=== PATIENT | male | born 1935 | race Caucasian/White ===

== ENCOUNTER 2018-05-18 21:15 | Inpatient (IN) ==
[2018-05-19] MEDS ORDERED: Naloxone 0.4 MG/ML INJ IVP PRN (01:51)
[2018-05-19] MEDS ORDERED: Dextrose Gel 15 GM/37.5 ML TUBE PO PRN ×2 (02:08)
[2018-05-19] MEDS ORDERED: D5% in Water 1,000 ML IVC PRN (02:08)
[2018-05-19] MEDS ORDERED: *HR* Dextrose 50 % in Water (Syg) 50 ML SYRINGE IVP PRN (02:08)
[2018-05-19] MEDS ORDERED: 0.9 % Sodium Chloride 1,000 ML IVC ONE (02:12)
--- NOTE | 2018-05-19 02:22 | Internal Med History&Physical ---
Date of Encounter: 05/19/18 Time of Encounter: 01:00 Internal Medicine - H&P: HPI Chief complaint: Obstructing ureteral stone Admitted From: Hospital to Hospital Transfer Plans for Post Hospital Care: Home History of present illness: Mr. Sellers is a 82 year old male Patient sedated, history obtained from ER records: Patient presented to the [place] ER for altered mental status and possible stroke. EMS stated he had a blod pressure of 200/110, heart rate of 120, temperature of 100. In the ER he was found to have a temperature of 100.8, pulse of 106 and blood pressure of 180 /84. ER did sepsis workup including CT abdomen, pelvis and head, UA, chest x- ray and lab work. CT abdomen showed 8mm stone in the right ureter with moderate hydronephrosis. Blood and urine cultures were obtained, he was given rocephin and levaquin. Arrangements were made to have patient transferred to [facility] for further management. Upon my assessment, patient is sedated but does respond to his name. He denies pain, but unclear if he has capacity to give accurate answer. Current vitals are temperature of 98.4, pulse 90, blood pressure of 142/78. He is resting comfortably in the hospital bed. Past Med Surg Social Fam HX - Past Medical History Medical history: COPD, dementia, diabetes, GERD, hypertension, kidney stones Additional medical history: DEMENTIA Psychiatric history: anxiety - Past Surgical History Surgical History: cholecystectomy, other Additional surgical history: dementia - Social History Smoking Status: Never smoker Smokeless Tobacco Status: No Alcohol use: none Drug use: none - Family History Mother Living Status: Hx Family Neurologic Disorders: Yes (History of a stroke) Father Living Status: Internal Medicine - H&P: Meds Pravastatin Sodium [Pravachol] 20 mg PO DAILY 05/25/15 [History] Memantine [Namenda] 5 mg PO DAILY 08/29/17 [History] Citalopram Hydrobromide [Citalopram HBr] 5 mg PO DAILY #0 09/02/17 [Rx] Potassium Chloride 20 meq PO DAILY tab.er.prt 09/02/17 [Rx] Melatonin/Pyridoxine HCl (B6) [Melatonin 3 mg Tablet] 6 mg PO HS 09/08/17 [ History] traZODone [TraZODone] 25 mg PO HS 09/08/17 [History] Aspirin Enteric Coated [Aspirin EC] 81 mg PO DAILY 05/18/18 [History] Cranberry Fruit Concentrate [Cranberry] 900 mg PO BID 05/18/18 [History] GlipiZIDE [Glipizide Xl] 5 mg PO 05/18/18 [History] Loratadine [Allergy Relief] 10 mg PO 05/18/18 [History] Melatonin [Melatin] 3 mg PO 05/18/18 [History] Mirtazapine [Remeron] 15 mg PO HS 05/18/18 [History] metFORMIN [Glucophage] 1,000 mg PO BID 05/18/18 [History] 3 Allergy/AdvReac Type Severity Reaction Status Date / Time No Known Allergies Allergy Verified 09/08/17 22:21 All Systems PM: A 10-system review of systems was performed and is negative for pertinent findings except as documented above in the HPI. - Constitutional Vitals: Temp Pulse Resp BP Pulse Ox 98.4 F 90 20 142/78 93 05/19/18 00:45 05/19/18 01:03 05/19/18 00:45 05/19/18 00:45 05/19/18 00:45 General appearance: Present: cooperative, pleasant, no acute distress Exam: sedated - Head Head exam: Present: normal inspection - Respiratory Respiratory exam: Present: CTAB. Absent: chest wall tenderness, respiratory distress, wheezes - Cardiovascular Cardiovascular exam: Present: RRR. Absent: diastolic murmur, systolic murmur - GI/Abdominal GI/Abdominal exam: Present: normal bowel sounds, soft. Absent: tenderness Additional comments: Difficult to determine tenderness, palpation did not result in patient reaction. Abdomen distended, but unclear what baseline is. - Extremities Exam Extremities exam: Present: warm, radial pulses palpable and symmetrical. Absent : pedal edema, tenderness - Neurological Exam Additional comments: Sedated - Skin Additional comments: Redness of groin, otherwise within normal limits. Internal Med - H&P Results - Labs CBC & Chem 7: 05/19/18 05:06 05/19/18 05:06 - Assessment and plan (1) Right ureteral calculus Current Visit: Yes Status: Acute Assessment and plan: 8mm calculus obstructing the right ureter. Urology consult in the AM. IV fluid hydration. Monitor urine output. (2) Hydronephrosis Current Visit: Yes Status: Acute Assessment and plan: Secondary to obstructing stone Treatment as above Qualifiers: Qualified Code(s): N13.2 - Hydronephrosis with renal and ureteral calculous obstruction (3) UTI (urinary tract infection) Current Visit: No Status: Acute Assessment and plan: Nitrite positive, large leukocyte esterase, large blood with moderate bacteria on UA. Urine culture not obtained at [place]. Continue IV antibiotics. Qualifiers: Urinary tract infection type: site unspecified Hematuria presence: without hematuria Qualified Code(s): N39.0 - Urinary tract infection, site not specified (4) Elevated troponin Current Visit: Yes Status: Acute Assessment and plan: Denies chest pain, continue to monitor. (5) Sepsis Current Visit: No Status: Acute Assessment and plan: Now resolved, patient had elevated vital signs in the [place] ER, likely related to the UTI and ureteral stone. Lactic acid not elevated. Continue to monitor. Qualifiers: Sepsis type: sepsis due to unspecified organism Qualified Code(s): A41.9 - Sepsis, unspecified organism (6) Dementia Current Visit: No Status: Chronic Assessment and plan: Chronic, likely baseline, but UTI could contribute to mental status changes. Continue to monitor. Treat UTI as above. Qualifiers: Qualified Code(s): F03.90 - Unspecified dementia without behavioral disturbance (7) Diabetes Current Visit: No Status: Chronic Assessment and plan: Insulin sliding scale Q6H, with Q6H accuchecks. NPO currently in anticipation of procedure today to remove stone. Qualifiers: Diabetes mellitus type: type 2 Diabetes mellitus halfway insulin use: without manager clinical use Diabetes mellitus complication status: with kidney complications Diabetes mellitus complication detail: with nephropathy Qualified Code(s): E11.21 - Type 2 diabetes mellitus with diabetic nephropathy (8) Melissa rash of groin Current Visit: Yes Status: Acute Assessment and plan: Nystatin powder (9) DVT prophylaxis Current Visit: No Status: Acute Assessment and plan: SCDs - Time Spent With Patient Total time spent is greater than 50% in coordination of care (as documented) at patient's floor/unit and/or counseling patient: Greater than 35 minutes
[2018-05-19 05:24] LABS: Hemoglobin 10.9 g/dL (12.9-16.9); Mean Corpuscular HGB Conc 32.1 g/dL (31.6-35.5); Mean Corpuscular Hemoglobin 27.1 pg (28.0-33.3); Mean Corpuscular Volume 84.6 fL (83.0-100.0); Mean Platelet Volume 9.3 fL (9.4-12.4); Platelet Count 163 K/mcL (140-400); Red Blood Count 4.02 M/mcL (4.19-5.50); Red Cell Distribution Width 14.6 % (11.5-14.5)
[2018-05-19 05:43] LABS: Calcium 8.2 mg/dL (8.6-10.3); Potassium 3.5 mEq/L (3.5-5.1)
[2018-05-19] MEDS ORDERED: *HR* Heparin 5,000 UNIT/ML VIAL SQ SCH (06:00)
[2018-05-19] MEDS: Insulin LISPRO 300 UNITS/3 ML VIAL SQ SCH ×3 (06:00→17:58)
--- NOTE | 2018-05-19 08:05 | Urology - Consult Note ---
<Shanna Washington N - Last Filed: 05/19/18 08:01> Date of Encounter: 05/19/18 Time of Encounter: 07:50 - Assessment and Plan (1) Right ureteral calculus Current Visit: Yes Status: Acute Assessment and plan: Patient is an 82 year old male who presents with an 8mm mid-ureteral stone and right hydronephrosis. Vital signs are stable, and patient is afebrile. Patient' s son has been counseled on the risks and benefits of surgical extraction. Patient's son verbalized understanding, consent has been signed, and the patient is prepared to undergo a right ureteroscopic stone extraction with holmium laser, basket retrieval, and right ureteral stent placement. Patient's son is aware stone extraction may require more than one procedure. Urology CN:LISA Consult date: 05/19/18 Reason for consult Urology: Other (ureteral stone) History of present illness: Patient is an 82 year old male who presents with febrile illness and weakness. Patient is a resident at a intermediate care facility in [place]. Patient is currently non-verbal. Patient suffers from dementia and multiple co-morbidities per his son that is present for evaluation. Patient's son states facility staff noticed fever and transferred him to [facility] ED. Patient underwent CT scan revealing nephrolithiasis and ureterolithiasis and was subsequently transferred to [facility] ED for urologic intervention. Patient has a known history of renal and bladder stones, but his family history is negative for both per patient's son. Past Med Surg Social Fam HX - Past Medical History Medical history: COPD, dementia, diabetes, GERD, hypertension, kidney stones Additional medical history: DEMENTIA Psychiatric history: anxiety - Past Surgical History Surgical History: cholecystectomy, other Additional surgical history: dementia - Social History Smoking Status: Never smoker Smokeless Tobacco Status: No Alcohol use: none Drug use: none - Family History Mother Living Status: Hx Family Neurologic Disorders: Yes (History of a stroke) Father Living Status: Medications and Allergies Pravastatin Sodium [Pravachol] 20 mg PO HS 05/25/15 [History] Memantine [Namenda] 5 mg PO DAILY 08/29/17 [History] Citalopram Hydrobromide [Citalopram HBr] 5 mg PO DAILY #0 09/02/17 [Rx] Aspirin Enteric Coated [Aspirin EC] 81 mg PO DAILY 05/18/18 [History] Cranberry Fruit Concentrate [Cranberry] 900 mg PO BID 05/18/18 [History] GlipiZIDE [Glipizide Xl] 5 mg PO DAILY 05/18/18 [History] Loratadine [Allergy Relief] 10 mg PO DAILY 05/18/18 [History] Melatonin [Melatin] 6 mg PO HS 05/18/18 [History] Mirtazapine [Remeron] 15 mg PO HS 05/18/18 [History] metFORMIN [Glucophage] 1,000 mg PO BID 05/18/18 [History] Cholecalciferol (Vitamin D3) [Vitamin D] 50,000 unit PO Q30D 05/19/18 [History] Lisinopril [Zestril] 10 mg PO DAILY 05/19/18 [History] Omeprazole [PriLOSEC] 20 mg PO Q48H 05/19/18 [History] Sennosides/Docusate Sodium [Senna-S Laxative Tablet] 1 each PO BID 05/19/18 [ History] 3 Allergy/AdvReac Type Severity Reaction Status Date / Time No Known Allergies Allergy Verified 09/08/17 22:21 Review of Systems ROS unobtainable: due to mental status Exam Initial Vital Signs Temp Pulse Resp BP Pulse Ox 98.4 F 93 20 142/78 93 05/19/18 00:45 05/19/18 00:45 05/19/18 00:45 05/19/18 00:45 05/19/18 00:45 - General physical appearance Present: no distress, no pain - ENT Present: normal nares, no congestion. Absent: nasal discharge - Neck Present: no masses, trachea midline - Respiratory Present: normal respiratory effort - Cardiovascular Cardiovascular exam IM: RRR - Integumentary Present: no rash, no growths, no abnormal pigmentation - Neurologic Present: disoriented Urology Results - Labs 05/19/18 05:06 05/19/18 05:06 Abnormal lab results RBC 4.02 M/mcL (4.19-5.50) L 05/19/18 05:06 Hgb 10.9 g/dL (12.9-16.9) L D 05/19/18 05:06 Hct 34.0 % (37.5-50.1) L 05/19/18 05:06 MCH 27.1 pg (28.0-33.3) L 05/19/18 05:06 RDW 14.6 % (11.5-14.5) H 05/19/18 05:06 MPV 9.3 fL (9.4-12.4) L 05/19/18 05:06 Carbon Dioxide 19 mEq/L (23-29) L 05/19/18 05:06 Creatinine 1.39 mg/dL (0.70-1.30) H 05/19/18 05:06 Est GFR ( Amer) 59 (> 60) L 05/19/18 05:06 Est GFR (Non-Af Amer) 49 (> 60) L 05/19/18 05:06 Glucose 124 mg/dL (70-105) H 05/19/18 05:06 Calcium 8.2 mg/dL (8.6-10.3) L 05/19/18 05:06 Troponin I 0.05 ng/mL (< 0.04) H* 05/19/18 02:15 Diabetes panel 05/19/18 Range/Units 05:06 Sodium 136 (136-145) mEq/L Potassium 3.5 D (3.5-5.1) mEq/L Chloride 107 (98-107) mEq/L Carbon Dioxide 19 L (23-29) mEq/L BUN 22 (8-23) mg/dL Creatinine 1.39 H (0.70-1.30) mg/dL Glucose 124 H (70-105) mg/dL Calcium 8.2 L (8.6-10.3) mg/dL Calcium panel 05/19/18 Range/Units 05:06 Calcium 8.2 L (8.6-10.3) mg/dL Pituitary panel 05/19/18 Range/Units 05:06 Sodium 136 (136-145) mEq/L Potassium 3.5 D (3.5-5.1) mEq/L Chloride 107 (98-107) mEq/L Carbon Dioxide 19 L (23-29) mEq/L BUN 22 (8-23) mg/dL Creatinine 1.39 H (0.70-1.30) mg/dL Glucose 124 H (70-105) mg/dL Calcium 8.2 L (8.6-10.3) mg/dL Adrenal panel 05/19/18 Range/Units 05:06 Sodium 136 (136-145) mEq/L Potassium 3.5 D (3.5-5.1) mEq/L Chloride 107 (98-107) mEq/L Carbon Dioxide 19 L (23-29) mEq/L BUN 22 (8-23) mg/dL Creatinine 1.39 H (0.70-1.30) mg/dL Glucose 124 H (70-105) mg/dL Calcium 8.2 L (8.6-10.3) mg/dL All other labs normal. - Imaging CT scan - abdomen: report reviewed, image reviewed CT scan - pelvis: report reviewed, image reviewed Consult Discharge Plan - Plan Referrals: Linda Salazar MD [Primary Care Provider] - <Baltazar Santoro - Last Filed: 05/19/18 12:16> Date of Encounter: 05/19/18 Exam Initial Vital Signs Temp Pulse Resp BP Pulse Ox 98.4 F 93 20 142/78 93 05/19/18 00:45 05/19/18 00:45 05/19/18 00:45 05/19/18 00:45 05/19/18 00:45 Urology Results - Labs 05/19/18 05:06 05/19/18 05:06 Abnormal lab results RBC 4.02 M/mcL (4.19-5.50) L 05/19/18 05:06 Hgb 10.9 g/dL (12.9-16.9) L D 05/19/18 05:06 Hct 34.0 % (37.5-50.1) L 05/19/18 05:06 MCH 27.1 pg (28.0-33.3) L 05/19/18 05:06 RDW 14.6 % (11.5-14.5) H 05/19/18 05:06 MPV 9.3 fL (9.4-12.4) L 05/19/18 05:06 Carbon Dioxide 19 mEq/L (23-29) L 05/19/18 05:06 Creatinine 1.39 mg/dL (0.70-1.30) H 05/19/18 05:06 Est GFR ( Amer) 59 (> 60) L 05/19/18 05:06 Est GFR (Non-Af Amer) 49 (> 60) L 05/19/18 05:06 Glucose 124 mg/dL (70-105) H 05/19/18 05:06 Calcium 8.2 mg/dL (8.6-10.3) L 05/19/18 05:06 Troponin I 0.05 ng/mL (< 0.04) H* 05/19/18 08:05 Diabetes panel 05/19/18 Range/Units 05:06 Sodium 136 (136-145) mEq/L Potassium 3.5 D (3.5-5.1) mEq/L Chloride 107 (98-107) mEq/L Carbon Dioxide 19 L (23-29) mEq/L BUN 22 (8-23) mg/dL Creatinine 1.39 H (0.70-1.30) mg/dL Glucose 124 H (70-105) mg/dL Calcium 8.2 L (8.6-10.3) mg/dL Calcium panel 05/19/18 Range/Units 05:06 Calcium 8.2 L (8.6-10.3) mg/dL Pituitary panel 05/19/18 Range/Units 05:06 Sodium 136 (136-145) mEq/L Potassium 3.5 D (3.5-5.1) mEq/L Chloride 107 (98-107) mEq/L Carbon Dioxide 19 L (23-29) mEq/L BUN 22 (8-23) mg/dL Creatinine 1.39 H (0.70-1.30) mg/dL Glucose 124 H (70-105) mg/dL Calcium 8.2 L (8.6-10.3) mg/dL Adrenal panel 05/19/18 Range/Units 05:06 Sodium 136 (136-145) mEq/L Potassium 3.5 D (3.5-5.1) mEq/L Chloride 107 (98-107) mEq/L Carbon Dioxide 19 L (23-29) mEq/L BUN 22 (8-23) mg/dL Creatinine 1.39 H (0.70-1.30) mg/dL Glucose 124 H (70-105) mg/dL Calcium 8.2 L (8.6-10.3) mg/dL All other labs normal. - Attending Attestation Patient seen and examined with the PA. He has a distal right ureteral stone as well as some bladder stones in a diverticulum. I recommend proceeding with a right ureteroscopy, laser lithotripsy, stent placement, and cystolitholapaxy. I discussed this case in detail with his son. The patient is very somnolent today. He was informed of the risks of the procedure including but not limited to bleeding, infection, injury to other structures, need for further procedures , stent irritation, incomplete fragmentation, ureteral perforation, need for nephrostomy tube, need for open repair, risks unforeseen, and the risk of anesthesia. He is willing to proceed.
[2018-05-19] MEDS: Nystatin POWDER 30 GM BOTTLE TP SCH ×3 (08:34→20:08)
[2018-05-19] MEDS ORDERED: Levofloxacin 750 MG/150 ML 750 MG/150 ML BAG IVPB SCH (09:00)
[2018-05-19] MEDS ORDERED: OXYCODONE Oral CONC 10 MG/0.5 ML ORAL.SYG SL ONE (11:46)
--- NOTE | 2018-05-19 16:11 | Anesthesia Evaluation PreOp ---
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 History: CVA (residual deficit affecting Eyesight), Other (Dementia, Anxiety ) Other Medical History: Renal (Diabetic Nephropathy, Ureteral Stone, Hydronephrosis, UTI/Urosepsis), Diabetes Type II, GERD Anesthesia History: No Prior Anesthetic Complications, Past Anesthesia ([place]) Alcohol Use: none Drug use: none Medications and Allergies Pravastatin Sodium [Pravachol] 20 mg PO HS 05/25/15 [History] Memantine [Namenda] 5 mg PO DAILY 08/29/17 [History] Citalopram Hydrobromide [Citalopram HBr] 5 mg PO DAILY #0 09/02/17 [Rx] Aspirin Enteric Coated [Aspirin EC] 81 mg PO DAILY 05/18/18 [History] Cranberry Fruit Concentrate [Cranberry] 900 mg PO BID 05/18/18 [History] GlipiZIDE [Glipizide Xl] 5 mg PO DAILY 05/18/18 [History] Loratadine [Allergy Relief] 10 mg PO DAILY 05/18/18 [History] Melatonin [Melatin] 6 mg PO HS 05/18/18 [History] Mirtazapine [Remeron] 15 mg PO HS 05/18/18 [History] metFORMIN [Glucophage] 1,000 mg PO BID 05/18/18 [History] Cholecalciferol (Vitamin D3) [Vitamin D] 50,000 unit PO Q30D 05/19/18 [History] Lisinopril [Zestril] 10 mg PO DAILY 05/19/18 [History] Omeprazole [PriLOSEC] 20 mg PO Q48H 05/19/18 [History] Sennosides/Docusate Sodium [Senna-S Laxative Tablet] 1 each PO BID 05/19/18 [ History] 3 Allergy/AdvReac Type Severity Reaction Status Date / Time No Known Allergies Allergy Verified 09/08/17 22:21 - Meds/Allergy Pre-op Review Medications Reviewed: Yes Allergies Reviewed: Yes Beta Blockers on Current Med List: No Anesthesia Results - Labs 05/19/18 05:06 05/19/18 05:06 Laboratory Results WBC 8.1 K/mcL (4.3-11.1) 05/19/18 05:06 RBC 4.02 M/mcL (4.19-5.50) L 05/19/18 05:06 Hgb 10.9 g/dL (12.9-16.9) L D 05/19/18 05:06 Hct 34.0 % (37.5-50.1) L 05/19/18 05:06 MCV 84.6 fL (83.0-100.0) 05/19/18 05:06 MCH 27.1 pg (28.0-33.3) L 05/19/18 05:06 MCHC 32.1 g/dL (31.6-35.5) 05/19/18 05:06 RDW 14.6 % (11.5-14.5) H 05/19/18 05:06 Plt Count 163 K/mcL (140-400) 05/19/18 05:06 MPV 9.3 fL (9.4-12.4) L 05/19/18 05:06 Sodium 136 mEq/L (136-145) 05/19/18 05:06 Potassium 3.5 mEq/L (3.5-5.1) D 05/19/18 05:06 Chloride 107 mEq/L (98-107) 05/19/18 05:06 Carbon Dioxide 19 mEq/L (23-29) L 05/19/18 05:06 BUN 22 mg/dL (8-23) 05/19/18 05:06 Creatinine 1.39 mg/dL (0.70-1.30) H 05/19/18 05:06 Est GFR ( Amer) 59 (> 60) L 05/19/18 05:06 Est GFR (Non-Af Amer) 49 (> 60) L 05/19/18 05:06 BUN/Creatinine Ratio 16 (6-26) 05/19/18 05:06 Glucose 124 mg/dL (70-105) H 05/19/18 05:06 POC Glucose 83 mg/dL (70-99) 05/19/18 17:30 Calculated Osmolality 287 (280-300) 05/19/18 05:06 Lactic Acid 1.3 mmol/L (0.5-2.2) 05/19/18 05:06 Calcium 8.2 mg/dL (8.6-10.3) L 05/19/18 05:06 Troponin I 0.04 ng/mL (< 0.04) H* 05/19/18 16:57 Laboratory Tests 05/18/18 05/19/18 05/19/18 19:00 02:15 08:05 Troponin I 0.04 H* 0.05 H* 0.05 H* 05/19/18 16:57 Troponin I 0.04 H* Anesthesia Exam O2 Sat Height 1.65 m Weight 75.8 kg O2 Sat by Pulse Oximetry 94 O2 Sat by Pulse Oximetry 96 O2 Sat by Pulse Oximetry 97 O2 Sat by Pulse Oximetry 94 O2 Sat by Pulse Oximetry 93 Vital Signs Temp Pulse Resp BP Pulse Ox 98.4 F 93 20 142/78 93 05/19/18 00:45 05/19/18 00:45 05/19/18 00:45 05/19/18 00:45 05/19/18 00:45 Height: 5'5" Weight: 167# BMI = 28 NPO (# of Hours): MNoc - HEENT Pupil (Motor): Pupils equal, EOMI Mallampati: II Anesthesia Assess/Plan ASA Score: 4 Anesthetic Plan: General Monitoring Plan: Standard Monitors Recovery Plan: PACU Anes Supervising Prov Stmt: Pt seen/evaluated, R&B discussed with Family, Questions answered and consent obtained. - MD Lenora <Brenna Marinelli - Last Filed: 05/20/18 03:51> Date of Encounter: 05/20/18 Anesthesia Results - Labs 05/19/18 05:06 05/19/18 05:06 Anesthesia Exam - HEENT Teeth: Edentulous Oral Opening: Greater than 3 - MUSEUM SERVICE SCHEDULER LOC: Oriented MUSEUM SERVICE SCHEDULER Motor: Normal RUE, Normal LUE, Normal RLE, Normal LLE, Normal Face MUSEUM SERVICE SCHEDULER Sensory: Normal: RUE, LUE, RLE, LLE, Face - Cardiac Rhythm: Regular - Pulmonary Breath Sounds: bilateral Clear Respiratory Effort: Symmetrical Anesthesia Assess/Plan ASA Score: E Modified [place] Scale for Level of Consciousness: Asleep with brisk response to stimulus Anesthetic Plan: General (phone consent obtained from son yonathan, risks discussed including periop cardiac and respiratory complications resulting in post op intubation and prolonged ICU stay) Recovery Plan: ICU
[2018-05-19] MEDS: OXYCODONE Oral CONC 10 MG/0.5 ML ORAL.SYG SL PRN (20:08)
[2018-05-20] MEDS: Insulin LISPRO 300 UNITS/3 ML VIAL SQ SCH ×5 (00:08→22:22)
[2018-05-20] MEDS ORDERED: Lidocaine -MPF 2% 2 ML VIAL ONE (01:16)
[2018-05-20] MEDS ORDERED: *HR* FentaNYL (PF) 100 MCG/2 ML VIAL ONE (01:16)
[2018-05-20] MEDS ORDERED: *HR* Etomidate 40 MG/20 ML VIAL IVP ONE (01:16)
[2018-05-20] MEDS ORDERED: *HR* Succinylcholine 200 MG/10 ML VIAL IVP ONE (01:19)
[2018-05-20] MEDS ORDERED: Isovue-300 50 ML VIAL IVP ONE (02:12)
[2018-05-20] MEDS ORDERED: Acetaminophen IV 1,000 MG/100 ML INFUS..BTL ONE (02:52)
--- NOTE | 2018-05-20 03:24 | Operative Note ---
Date of procedure: 05/20/18 Pre-op diagnosis: Right ureteral stone, bladder stone Post-op diagnosis: same Procedure: Right ureteroscopy, basket stone extraction, and stent placement Implants: 6-German by 26 cm double-J stent Complications: None Anesthesia: SIDDHARTHA Surgeon: Baltazar Santoro Was there an assistant director of admissions present: No Estimated blood loss (cc): 1 Specimen: None Condition: stable Disposition: PACU Procedure in Detail: Indications: Mr. Sellers is an 82-year-old gentleman who has a history of right flank pain. A CT scan showed a stone in the distal right ureter. He also had bladder stones in a diverticulum. He elected to undergo a right ureteroscopy, laser lithotripsy, and stent placement along with possible cystolitholapaxy. He is aware of the risks of the procedure including but not limited to bleeding, infection, injury to other structures, need for further procedures, stent irritation, and the risk of anesthesia. He is willing to proceed. Procedure: After informed consent was obtained the patient was brought back to the operating room and placed in supine position. A time out was performed. General anesthesia was administered and an endotracheal tube was placed. He was then placed in the lithotomy position. He was prepped and draped in the usual sterile fashion. Cystoscopy was performed. The anterior urethra was normal. There was no evidence of bladder tumors. There was evidence of a prior TUR defect. The bladder had 3+ trabeculations. The right ureteral orifice was a bit difficult to identify, but the ureteral orifices were in the normal orthotopic position. There was a diverticulum near the right ureteral orifice. This was difficult to access with the scope. This is where the stones were located in the bladder. The neck of the diverticulum was small. I decided to not perform a cystolitholapaxy. The Zip wire was placed in the right ureteral orifice and brought into the kidney under fluoroscopic guidance. I then advanced the semirigid ureteroscope into the ureter. The stone was basket extracted. A 6 German by 26cm JJ stent was then placed with good curl seen in the kidney and the bladder. The dangle string was removed. A Clark catheter was placed. The patient was then awakened from general anesthesia and brought to recovery room in good condition. All sponge, needle, and instrument counts were correct.
--- NOTE | 2018-05-20 03:53 | Anesthesia Evaluation Post Op ---
Date of Encounter: 05/20/18 Time of Encounter: 03:52 - Vital Signs Vital Signs: Vital Signs/O2 Sat, Most Current Temp Pulse Resp BP Pulse Ox 98.8 F 85 18 154/87 97 05/20/18 03:40 05/20/18 03:40 05/20/18 03:40 05/20/18 03:40 05/20/18 03:40 - Lungs Lungs: Clear Ascult./Percussion - Airway Airway: Non-obstructed - Cardiovascular Regular Rate - Mental Status Mental Status: Baseline Status - Pain Pain Scale: 0 Pain Scale used: Numeric (1 - 10) - Nausea Vomiting Nausea Vomiting: Not Present - Hydration Hydration: NPO, Clark catheter - Discharge PostOp Status: Transfer Patient to floor Attestation: further care per ICU team
[2018-05-20] MEDS: Nystatin POWDER 30 GM BOTTLE TP SCH ×3 (07:40→20:43)
--- NOTE | 2018-05-20 08:54 | Urology Progress Note ---
Date of Encounter: 05/20/18 Time of Encounter: 08:52 - Assessment and Plan (1) Right ureteral calculus Current Visit: Yes Status: Acute Assessment and plan: Patient is an 82 year old male who is 6 hours postoperative from a right ureteroscopy, basket stone extraction, and stent placement. Patient is feeling well with no concerns. Vital signs are stable and afebrile. Preliminary urine culture positive for gram negative rods. Continue IV Levaquin and await final sensitivity report. Progress Note Narrative: POD #0. Patient seen and examined sitting upright in bed in no apparent distress. Patient cognitively improved since initial consultation. Patient states feeling well with no new concerns. Pain is well controlled. Patient denies fever, chills, flank pain. Objective Initial Vital Signs Temp Pulse Resp BP Pulse Ox 98.4 F 93 20 142/78 93 05/19/18 00:45 05/19/18 00:45 05/19/18 00:45 05/19/18 00:45 05/19/18 00:45 - General physical appearance Present: no distress, no pain - Respiratory Present: normal expansion, normal respiratory effort - Abdomen Present: soft, non tender - Genitourinary Urine Appearance: Present: Clear - Integumentary Present: no rash, no abnormal pigmentation - Musculoskeletal Present: normal posture - Psychiatric Present: oriented to time, oriented to person, oriented to place, speech is normal, memory intact - Labs 05/19/18 05:06 05/19/18 05:06 - VTE Documentation of Mechanical Device: Intermittent pneumatic compression device Consult Discharge Plan - Plan Referrals: Linda Salazar MD [Primary Care Provider] -
[2018-05-20] MEDS ORDERED: Levofloxacin 750 MG/150 ML 750 MG/150 ML BAG IVPB SCH (09:00)
[2018-05-20] MEDS: OXYCODONE Oral CONC 10 MG/0.5 ML ORAL.SYG SL PRN ×3 (09:57→22:33)
[2018-05-20] MEDS ORDERED: *HR* Dextrose 50 % in Water (Syg) 50 ML SYRINGE IVP PRN (10:49)
[2018-05-20] MEDS ORDERED: Naloxone 0.4 MG/ML INJ IVP PRN (10:49)
[2018-05-20] MEDS ORDERED: Dextrose Gel 15 GM/37.5 ML TUBE PO PRN ×2 (10:49)
[2018-05-20] MEDS ORDERED: D5% in Water 1,000 ML IVC PRN (10:49)
--- NOTE | 2018-05-20 18:04 | Electrocardiograph Report ---
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
--- NOTE | 2018-05-20 22:02 | Internal Med Progress Note ---
Hospitalist Progress Note - Encounter Date of Encounter: 05/20/18 Time of Encounter: 19:00 - Subjective Interval History: SUBJECTIVE: The patient feels good. He is not voicing any particular symptoms. Denies chest pain. Denies difficulty breathing, coughing and wheezing. Denies abdominal pain, nausea and vomiting. He makes good amounts of urine. OBJECTIVE: Skin: Free of rash and discoloration. ENMT: Oral/pharyngeal mucosa is normal in appearance. Eyes: Sclera is white. There is no discharge from eyes. Respiratory: Normal breath sounds; no crackles or wheezes. CV: Heart is regular; no gallop or murmur. GI: Abdomen is soft and not tender. There is no palpable mass or visceromegaly. Neuro: There is no focal deficits. ASSESSMENT AND PLAN: Right ureteral stone with hydronephrosis. See notes from urology. The patient had basket stone extraction and stent insertion in the right ureter today. We will be watching his urinary output closely. Type 2 diabetes mellitus. Under control. We will continue diabetic diet and when necessary insulin Humalog. He was taking metformin and glipizide at home. Hypertension. Out of control. Will restart his lisinopril. GERD. Under control. We will continue omeprazole. Dementia. The patient cannot tell me, what has happened to him recently. He has a vague feeling that he is in the hospital. DISPOSITION: I will start physical therapy for ambulation. Hopefully, will discharge him either tomorrow or after tomorrow. - Exam Vitals: Temp Pulse Resp BP Pulse Ox 97.8 F 81 12 161/83 98 05/20/18 16:30 05/20/18 07:31 05/20/18 07:31 05/20/18 07:31 05/20/18 07:31 Exam: xxx - Assessment and Plan (1) Ureteral stone with hydronephrosis Current Visit: Yes Status: Acute (2) T2DM (type 2 diabetes mellitus) Current Visit: Yes Status: Chronic (3) HTN (hypertension) Current Visit: No Status: Chronic (4) GERD (gastroesophageal reflux disease) Current Visit: Yes Status: Chronic (5) Dementia Current Visit: No Status: Chronic - Time Spent with Patient Total time spent is greater than 50% in coordination of care (as documented) at patient's floor/unit and/or counseling patient: 25 - 35 minutes Plan of Care Discussed with: nurse Internal Medicine: Result - Labs CBC & Chem 7: 05/19/18 05:06 05/19/18 05:06 - Impressions Impressions Fluoroscopy 05/20/18 00:00 IMPRESSION: Intra procedural fluoroscopic imaging during right nephroureteral stent placement. Please see procedural note for details. 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 Diabetes mellitus complication status: without complication Qualified Code(s): E11.9 - Type 2 diabetes mellitus without complications (3) HTN (hypertension) Qualifiers: Hypertension type: essential hypertension Qualified Code(s): I10 - Essential (primary) hypertension (4) GERD (gastroesophageal reflux disease) Qualifiers: Esophagitis presence: esophagitis presence not specified Qualified Code(s): K21.9 - Gastro-esophageal reflux disease without esophagitis (5) Dementia Qualifiers: Dementia type: unspecified type Dementia behavioral disturbance: without behavioral disturbance Qualified Code(s): F03.90 - Unspecified dementia without behavioral disturbance
[2018-05-21] MEDS: OXYCODONE Oral CONC 10 MG/0.5 ML ORAL.SYG SL PRN ×2 (03:43→14:01)
--- NOTE | 2018-05-21 08:56 | Urology Progress Note ---
Date of Encounter: 05/21/18 Time of Encounter: 08:54 - Assessment and Plan (1) Right ureteral calculus Current Visit: Yes Status: Acute Assessment and plan: Patient is an 82 year old male 1 day status post right ureteroscopy, basket stone extraction, and stent placement. Vital signs are stable and afebrile. Urine culture is positive for gram negative rods. Awaiting urine culture sensitivity. Progress Note Subjective: no new complaints, feels better Narrative: Patient seen and examined sitting upright in bed tolerating normal diet. Indwelling garcia draining clear urine into bedside bag. Patient denies fever, chills, flank pain. Objective Initial Vital Signs Temp Pulse Resp BP Pulse Ox 98.4 F 93 20 142/78 93 05/19/18 00:45 05/19/18 00:45 05/19/18 00:45 05/19/18 00:45 05/19/18 00:45 - General physical appearance Present: well developed, no distress, no pain - Respiratory Present: normal expansion, normal respiratory effort - Abdomen Present: soft, non tender - Genitourinary Urine Appearance: Present: Clear - Integumentary Present: no rash, no abnormal pigmentation - Musculoskeletal Present: normal posture - Psychiatric Present: oriented to time, oriented to person, oriented to place, speech is normal, memory intact - Labs 05/19/18 05:06 05/19/18 05:06 - VTE Documentation of Mechanical Device: Intermittent pneumatic compression device Consult Discharge Plan - Plan Referrals: Linda Salazar MD [Primary Care Provider] - Baltazar Santoro MD [Partnered Physician] -
[2018-05-21] MEDS: *HR* GlipiZIDE XL (24 HR) 2.5 MG TABLET PO SCH (09:05)
[2018-05-21] MEDS: Aspirin Enteric Coated 81 MG Tablet PO SCH (09:05)
[2018-05-21] MEDS: Sennosides/Docusate Sodium TABLET PO SCH ×2 (09:05→22:04)
[2018-05-21] MEDS: *HR* Metformin 500 MG TABLET PO SCH ×2 (09:05→22:02)
[2018-05-21] MEDS: Loratadine 10 MG TABLET PO SCH (09:06)
[2018-05-21] MEDS: Nystatin POWDER 30 GM BOTTLE TP SCH ×3 (09:06→22:02)
[2018-05-21] MEDS: Insulin LISPRO 300 UNITS/3 ML VIAL SQ SCH ×3 (09:06→16:59)
[2018-05-21] MEDS ORDERED: Mirtazapine 15 MG TABLET PO SCH (21:00)
[2018-05-22] MEDS: Insulin LISPRO 300 UNITS/3 ML VIAL SQ SCH ×4 (04:48→17:07)
--- NOTE | 2018-05-22 06:00 | Internal Med Progress Note ---
Hospitalist Progress Note - Encounter Date of Encounter: 05/21/18 Time of Encounter: 19:00 - Subjective Interval History: SUBJECTIVE: The patient feels good. Denies chest pain and difficulty breathing. Denies abdominal pain, nausea and vomiting. He has Clark catheter inserted. It is draining normal color fair amounts of urine. OBJECTIVE: Skin: Free of rash and discoloration. ENMT: Oral/pharyngeal mucosa is normal in appearance. Eyes: Sclera is white. There is no discharge from eyes. Respiratory: Normal breath sounds; no crackles or wheezes. CV: Heart is regular; no gallop or murmur. GI: Abdomen is soft and not tender. There is no palpable mass or visceromegaly. Neuro: There is no focal deficits. The patient is mildly/moderately demented. He does recognize his . His mental status is baseline; according to his . ASSESSMENT AND PLAN: Right ureteral stone with hydronephrosis. See notes from urology. The patient had basket stone extraction and stent insertion in the right ureter yesterday. We will be watching his urinary output closely. Type 2 diabetes mellitus. Under control. I will switch him to metformin and the glipizide; was taking them at home. Hypertension. Under control. We will continue lisinopril. GERD. Under control. We will continue omeprazole. Dementia. Mild/moderate. His mental status is baseline again. DISPOSITION: We started physical therapy for ambulation. We will discontinue Clark catheter tomorrow morning. If he makes urine on his own, he will be discharged home tomorrow afternoon. - Exam Vitals: Temp Pulse Resp BP Pulse Ox 97.8 F 72 16 133/72 95 05/21/18 23:31 05/21/18 23:31 05/21/18 23:31 05/21/18 23:31 05/21/18 23:31 Exam: xx - Assessment and Plan (1) Ureteral stone with hydronephrosis Status: Acute (2) T2DM (type 2 diabetes mellitus) Status: Chronic (3) HTN (hypertension) Status: Chronic (4) GERD (gastroesophageal reflux disease) Status: Chronic (5) Dementia Status: Chronic - Time Spent with Patient Total time spent is greater than 50% in coordination of care (as documented) at patient's floor/unit and/or counseling patient: 25 - 35 minutes Plan of Care Discussed with: patient Internal Medicine: Result - Labs CBC & Chem 7: 05/22/18 09:27 05/22/18 10:20 - VTE Documentation of Mechanical Device: Intermittent pneumatic compression device Consult Discharge Plan - Plan Additional Instructions: Follow-up appointments: If there is not an appointment listed below, please call your physician and schedule a follow-up appointment. If you have congestive heart failure and your symptoms return, make an appointment with your physician. Medication List: Carry an up to date list of medications you are taking at all time. We have given you an updated medication list including any new medications that you have been prescribed. Please provide that list to your primary provider Symptoms: If your condition changes or you experience any of the following symptoms, notify your physician immediately: Unusual or worsening pain, fever, persistent nausea and vomiting, bleeding, increase in swelling (especially in your legs), sudden weight gain, extreme dizziness, chest pain, increased drainage or redness from a wound or incision. Go to the emergency department if you experience a problem with breathing. Weights: If you have a history of swelling or shortness of breath, weigh yourself daily and notify your physician if you have a weight gain of two or more pounds in one day or 5 or more pounds in a week. If you experience any of the warning signs for stroke: Sudden numbness or weakness of the face, arm or leg; especially on one side of the body, sudden confusion, trouble speaking or understanding, sudden trouble seeing in one or both eyes, sudden trouble walking, dizziness, loss of balance or coordination, sudden sever headache with no cause; Call 911 or go to the emergency room. Stroke is a medical emergency. Some risk factors for stroke: Age, cigarette smoking, diabetes, excessive alcohol consumption, family history , high blood pressure, overweight, physical inactivity, prior stroke, heart attack, diagnosis of carotid artery stenosis or other artery disease. If you smoke, STOP: Smoking or tobacco use significantly increases your risk of heart and lung disease. Your chance of disease greatly increases if you continue to smoke. 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 Diabetes mellitus complication status: without complication Qualified Code(s): E11.9 - Type 2 diabetes mellitus without complications (3) HTN (hypertension) Qualifiers: Hypertension type: essential hypertension Qualified Code(s): I10 - Essential (primary) hypertension (4) GERD (gastroesophageal reflux disease) Qualifiers: Esophagitis presence: esophagitis presence not specified Qualified Code(s): K21.9 - Gastro-esophageal reflux disease without esophagitis (5) Dementia Qualifiers: Dementia type: unspecified type Dementia behavioral disturbance: without behavioral disturbance Qualified Code(s): F03.90 - Unspecified dementia without behavioral disturbance
[2018-05-22] MEDS ORDERED: Levofloxacin 750 MG/150 ML 750 MG/150 ML BAG IVPB SCH (09:00)
[2018-05-22 09:41] LABS: Basophils % 0.3 %; Eosinophils # 0.2 K/mcL (0.0-0.6); Eosinophils % 2.6 %; Hemoglobin 12.4 g/dL (12.9-16.9); Immature Granulocytes % 0.5 % (0-4); Lymphocytes # 1.2 K/mcL (0.6-4.6); Lymphocytes % 18.6 %; Mean Corpuscular HGB Conc 32.6 g/dL (31.6-35.5); Mean Corpuscular Volume 82.8 fL (83.0-100.0); Mean Platelet Volume 9.6 fL (9.4-12.4); Monocytes # 0.6 K/mcL (0.0-1.3); Monocytes % 9.2 %; Neutrophils # 4.3 K/mcL (1.6-8.9); Platelet Count 183 K/mcL (140-400); Red Blood Count 4.59 M/mcL (4.19-5.50); Red Cell Distribution Width 14.9 % (11.5-14.5); Segmented Neutrophils % 68.8 %
[2018-05-22] MEDS: *HR* Metformin 500 MG TABLET PO SCH (10:16)
[2018-05-22] MEDS: Loratadine 10 MG TABLET PO SCH (10:17)
[2018-05-22] MEDS: Aspirin Enteric Coated 81 MG Tablet PO SCH (10:17)
[2018-05-22] MEDS: Sennosides/Docusate Sodium TABLET PO SCH (10:18)
[2018-05-22] MEDS: *HR* GlipiZIDE XL (24 HR) 2.5 MG TABLET PO SCH (10:19)
[2018-05-22] MEDS: Nystatin POWDER 30 GM BOTTLE TP SCH ×2 (10:28→14:22)
[2018-05-22 11:40] LABS: BUN/Creatinine Ratio 22 (6-26); Blood Urea Nitrogen 28 mg/dL (8-23); Calcium 8.5 mg/dL (8.6-10.3); Carbon Dioxide 25 mEq/L (23-29); Chloride 103 mEq/L (98-107); Glucose 163 mg/dL (70-105); Osmolality,Calculated 291 (280-300); Potassium 3.7 mEq/L (3.5-5.1); Sodium 136 mEq/L (136-145); eGFR For Non-African Americans 55 (> 60)
--- NOTE | 2018-05-22 12:46 | Urology Progress Note ---
Date of Encounter: 05/22/18 Time of Encounter: 12:43 - Assessment and Plan (1) Right ureteral calculus Current Visit: Yes Status: Acute Assessment and plan: Patient is an 82-year-old male who is 2 days status post ight ureteroscopy, basket stone extraction, and stent placement. Patient is feeling well with no concerns. Vital signs are stable and afebrile. Indwelling Clark catheter is draining clear urine and may be removed by the primary team. Patient may follow up as an outpatient for cystoscopy and stent removal. Progress Note Subjective: no new complaints, feels better Narrative: POD# 2. Patient seen and examined sitting upright in bed in no apparent distress. Tolerating normal diet. Indwelling Clark catheter is draining clear urine into bedside bag. Patient denies catheter discomfort or feeling of obstruction. Patient denies flank pain, fever, chills. Objective Initial Vital Signs Temp Pulse Resp BP Pulse Ox 98.4 F 93 20 142/78 93 05/19/18 00:45 05/19/18 00:45 05/19/18 00:45 05/19/18 00:45 05/19/18 00:45 - General physical appearance Present: well developed, no distress, no pain - Respiratory Present: normal expansion, normal respiratory effort - Abdomen Present: soft, non tender - Genitourinary Urine Appearance: Present: Clear - Integumentary Present: no rash, no abnormal pigmentation - Musculoskeletal Present: normal posture - Psychiatric Present: oriented to time, oriented to person, oriented to place, speech is normal, memory intact - Labs 05/22/18 09:27 05/22/18 10:20 Diabetes panel 05/22/18 Range/Units 10:20 Sodium 136 (136-145) mEq/L Potassium 3.7 (3.5-5.1) mEq/L Chloride 103 (98-107) mEq/L Carbon Dioxide 25 (23-29) mEq/L BUN 28 H (8-23) mg/dL Creatinine 1.25 (0.70-1.30) mg/dL Glucose 163 H (70-105) mg/dL Calcium 8.5 L (8.6-10.3) mg/dL Calcium panel 05/22/18 Range/Units 10:20 Calcium 8.5 L (8.6-10.3) mg/dL Pituitary panel 09/14/18 Range/Units 10:20 Sodium 136 (136-145) mEq/L Potassium 3.7 (3.5-5.1) mEq/L Chloride 103 (98-107) mEq/L Carbon Dioxide 25 (23-29) mEq/L BUN 28 H (8-23) mg/dL Creatinine 1.25 (0.70-1.30) mg/dL Glucose 163 H (70-105) mg/dL Calcium 8.5 L (8.6-10.3) mg/dL Adrenal panel 05/22/18 Range/Units 10:20 Sodium 136 (136-145) mEq/L Potassium 3.7 (3.5-5.1) mEq/L Chloride 103 (98-107) mEq/L Carbon Dioxide 25 (23-29) mEq/L BUN 28 H (8-23) mg/dL Creatinine 1.25 (0.70-1.30) mg/dL Glucose 163 H (70-105) mg/dL Calcium 8.5 L (8.6-10.3) mg/dL - VTE Documentation of Mechanical Device: Intermittent pneumatic compression device Consult Discharge Plan - Plan Referrals: Linda Salazar MD [Primary Care Provider] - Baltazar Santoro MD [Partnered Physician] -
[2018-05-22 13:51] VITALS: BP 138/79
--- NOTE | 2018-05-22 14:52 | Discharge Summary ---
Orders not resulted at time of discharge: Pending orders 05/20/18 XR KUB [XR] Routine Date of Encounter: 05/22/18 Time of Encounter: 14:50 - Discharge Diagnosis (1) Ureteral stone with hydronephrosis Priority: Primary Status: Acute (2) T2DM (type 2 diabetes mellitus) Priority: Secondary Status: Chronic Qualifiers: Diabetes mellitus [facility] insulin use: without [facility] use Diabetes mellitus complication status: without complication Qualified Code(s): E11.9 - Type 2 diabetes mellitus without complications (3) HTN (hypertension) Priority: Secondary Status: Chronic Qualifiers: Hypertension type: essential hypertension Qualified Code(s): I10 - Essential (primary) hypertension (4) GERD (gastroesophageal reflux disease) Priority: Secondary Status: Chronic Qualifiers: Esophagitis presence: esophagitis presence not specified Qualified Code(s) : K21.9 - Gastro-esophageal reflux disease without esophagitis (5) Dementia Priority: Secondary Status: Chronic Qualifiers: Dementia type: unspecified type Dementia behavioral disturbance: without behavioral disturbance Qualified Code(s): F03.90 - Unspecified dementia without behavioral disturbance Hospital course: HOSPITAL COURSE: This 82-year-old male was transferred to our hospital from [place] emergency room with 8 mm renal stone causing right-sided hydronephrosis. He had blood pressure of 200/110 with heart rate of 120 and temperature of 100.0 before this admission. We put him on IV Rocephin/IV Levaquin. Urology was consulted. They did the right-sided ureteroscopy and basket stone extraction. The patient did well during and after the procedure. We kept Clark catheter inserted for about 1 day after the procedure. We discontinued it on the day of discharge. The patient voided 100 cc of clear urine before the discharge. He was a little bit confused after the admission. His mental status returned to baseline by the time of discharge. CONDITION AT DISCHARGE: He feels good. Denies pain and the difficulty breathing. His blood pressure is under control. Denies difficulty breathing, coughing and wheezing. Skin: Free of rash and discoloration. Respiratory: Normal breath sounds with no crackles and wheezes bilaterally. CV: Heart is regular with no gallop or murmur. GI: Abdomen is flat and soft with no palpable mass or visceromegaly. Neuro exam: There is no focal deficits. Normal speech, swallowing and gait. SEE DISCHARGE ORDERS/MEDICATIONS.. Discharge discussed with: patient, family, nurse - Time Spent with Patient Total time spent providing and/or coordinating discharge services: Greater than 30 minutes (40 minutes) - Discharge Medications Home Medications: Pravastatin Sodium [Pravachol] 20 mg PO HS 05/25/15 [History] Memantine [Namenda] 5 mg PO DAILY 08/29/17 [History] Citalopram Hydrobromide [Citalopram HBr] 5 mg PO DAILY #0 09/02/17 [Rx] Aspirin Enteric Coated [Aspirin EC] 81 mg PO DAILY 05/18/18 [History] Cranberry Fruit Concentrate [Cranberry] 900 mg PO BID 05/18/18 [History] GlipiZIDE [Glipizide Xl] 5 mg PO DAILY 05/18/18 [History] Loratadine [Allergy Relief] 10 mg PO DAILY 05/18/18 [History] Melatonin [Melatin] 6 mg PO HS 05/18/18 [History] Mirtazapine [Remeron] 15 mg PO HS 05/18/18 [History] metFORMIN [Glucophage] 1,000 mg PO BID 05/18/18 [History] Cholecalciferol (Vitamin D3) [Vitamin D3] 50,000 unit PO Q30D 05/19/18 [History] Lisinopril [Zestril] 10 mg PO DAILY 05/19/18 [History] Omeprazole [PriLOSEC] 20 mg PO Q48H 05/19/18 [History] Sennosides/Docusate Sodium [Senna-S Laxative Tablet] 1 each PO BID 05/19/18 [ History] Allergies/Adverse Reactions: 3 Allergy/AdvReac Type Severity Reaction Status Date / Time No Known Allergies Allergy Verified 09/08/17 22:21 Date of admission: 05/19/18 07:28 Primary care physician: Linda Salazar Consults: 05/19/18 01:55 Consult to Urology [CONS] Routine Consulting Provider: Urology More Reason for Consult: 8mm right obstructing ureteral stone Call Completed: No 05/20/18 22:14 Consult to Physical Therapy [CONS] Routine Comment: Evaluate, develop and implement POC Reason for Consult: Deconditioning; not moving around for a few days.. Does patient have active BEDREST order?: No Is patient medically & hemodynamically stable?: Yes Patient assessed for mobility or mobilized this visit?: No Discharging clinician: Alex Whalen Anticipated date of discharge: 05/22/18 - Constitutional Vitals: Temp Pulse Resp BP Pulse Ox 97.9 F 116 13 138/79 99 05/22/18 13:49 05/22/18 13:49 05/22/18 13:49 05/22/18 13:49 05/22/18 13:49 General appearance: Present: cooperative, pleasant, no acute distress Exam: xxx - Patient Status Disposition: Transfer SNF Condition: Fair Functional capacity at discharge: independent ambulation (with assistance..) - Discharge Instructions Follow Up With: Linda Salazar MD [Primary Care Provider] - (please follow up with PCP) Baltazar Santoro MD [Partnered Physician] - 05/29/18 10:45 am Additional Instructions: Follow-up appointments: If there is not an appointment listed below, please call your physician and schedule a follow-up appointment. If you have congestive heart failure and your symptoms return, make an appointment with your physician. Medication List: Carry an up to date list of medications you are taking at all time. We have given you an updated medication list including any new medications that you have been prescribed. Please provide that list to your primary provider Symptoms: If your condition changes or you experience any of the following symptoms, notify your physician immediately: Unusual or worsening pain, fever, persistent nausea and vomiting, bleeding, increase in swelling (especially in your legs), sudden weight gain, extreme dizziness, chest pain, increased drainage or redness from a wound or incision. Go to the emergency department if you experience a problem with breathing. Weights: If you have a history of swelling or shortness of breath, weigh yourself daily and notify your physician if you have a weight gain of two or more pounds in one day or 5 or more pounds in a week. If you experience any of the warning signs for stroke: Sudden numbness or weakness of the face, arm or leg; especially on one side of the body, sudden confusion, trouble speaking or understanding, sudden trouble seeing in one or both eyes, sudden trouble walking, dizziness, loss of balance or coordination, sudden sever headache with no cause; Call 911 or go to the emergency room. Stroke is a medical emergency. Some risk factors for stroke: Age, cigarette smoking, diabetes, excessive alcohol consumption, family history , high blood pressure, overweight, physical inactivity, prior stroke, heart attack, diagnosis of carotid artery stenosis or other artery disease. If you smoke, STOP: Smoking or tobacco use significantly increases your risk of heart and lung disease. Your chance of disease greatly increases if you continue to smoke. For more information, call the [employer] tobacco quit line for smoking cessation 0-NOW ( ) - Diet and Activity Activity: as per physical therapy Diet: diabetic diet - VTE Reasons for not Prescribing Prophylaxis: Treatment not Indicated - Low risk for VTE Documentation of Mechanical Device: Intermittent pneumatic compression device Deep Vein Thrombosis/Pulmonary Embolism Present on Admission: No
--- NOTE | 2018-05-22 15:43 | Physician Discharge Referral ---
ExtendedCare Referral Info Transfer To: [facility] Provider in Charge: Armin HECK MD Provider in Charge after Transfer: Other (A SNF PHYSICIAN) Institutional Level of Care: Skilled - Diagnosis (1) Ureteral stone with hydronephrosis Priority: Primary Status: Acute (2) T2DM (type 2 diabetes mellitus) Priority: Secondary Status: Chronic (3) HTN (hypertension) Priority: Secondary Status: Chronic (4) GERD (gastroesophageal reflux disease) Priority: Secondary Status: Chronic (5) Dementia Priority: Secondary Status: Chronic Prognosis: Fair - Transfer Medications Home Medications: Pravastatin Sodium [Pravachol] 20 mg PO HS 05/25/15 [History] Memantine [Namenda] 5 mg PO DAILY 08/29/17 [History] Citalopram Hydrobromide [Citalopram HBr] 5 mg PO DAILY #0 09/02/17 [Rx] Aspirin Enteric Coated [Aspirin EC] 81 mg PO DAILY 05/18/18 [History] Cranberry Fruit Concentrate [Cranberry] 900 mg PO BID 05/18/18 [History] GlipiZIDE [Glipizide Xl] 5 mg PO DAILY 05/18/18 [History] Loratadine [Allergy Relief] 10 mg PO DAILY 05/18/18 [History] Melatonin [Melatin] 6 mg PO HS 05/18/18 [History] Mirtazapine [Remeron] 15 mg PO HS 05/18/18 [History] metFORMIN [Glucophage] 1,000 mg PO BID 05/18/18 [History] Cholecalciferol (Vitamin D3) [Vitamin D3] 50,000 unit PO Q30D 05/19/18 [History] Lisinopril [Zestril] 10 mg PO DAILY 05/19/18 [History] Omeprazole [PriLOSEC] 20 mg PO Q48H 05/19/18 [History] Sennosides/Docusate Sodium [Senna-S Laxative Tablet] 1 each PO BID 05/19/18 [ History] Allergies/Adverse Reactions: 3 Allergy/AdvReac Type Severity Reaction Status Date / Time No Known Allergies Allergy Verified 09/08/17 22:21 - Respiratory Orders None Smoking Cessation: Smoking cessation has been advised. For more information, call the [place] Tobacco Quit Line at 8-517-JXJY-NOW. - Rehabiliation Orders Rehab Orders: Evaluation for Physical Therapy - Diet Orders No Concentrated Sweets CERTIFICATION: I certify that the transfer of the above named patient to an Extended Care Facility is necessary for the continuing treatment of the diagnosis listed. The above information is true and accurate reflection of patient's current condition. Confidential - Redisclosure prohibited without a patient's written consent.
[2018-05-22] MEDS ORDERED: *HR* Metformin 500 MG TABLET PO SCH (17:00)
== END 2018-05-22 17:50 | DRG 661 ==
LOC: ICNU → SUATTDRO 05-19 00:58 → 3ANU 05-20 20:19
PROVIDERS: ADMIT Pediatrics; ATTEND Internal Medicine